=== PATIENT | male | born 2000 | race Caucasian/White ===

== ENCOUNTER 2019-02-23 13:55 | Inpatient (IN) | payer OTHER ==
[2019-02-23 14:10] VITALS: BMI 24.5
[2019-02-23] MEDS ORDERED: Sodium Chloride 0.9% 1,000 ML IV SCH (14:45)
[2019-02-23] MEDS ORDERED: Ondansetron ODT 4 MG TAB PO PRN (14:45)
[2019-02-23] MEDS ORDERED: Dextrose 5% in Water 1,000 ML IV PRN (14:45)
[2019-02-23] MEDS ORDERED: Dextrose 50% Abboject 50 ML SYRINGE SLOW IVP PRN (14:45)
[2019-02-23] MEDS ORDERED: Ondansetron PF 4 MG/2 ML Vial IVP PRN (14:45)
[2019-02-23] MEDS ORDERED: traMADol HCl 50 MG TAB PO PRN (14:50)
[2019-02-23] MEDS ORDERED: Acetaminophen 325 MG TAB PO SCH (15:00)
[2019-02-23] MEDS ORDERED: Ketorolac Tromethamine 30 MG/ML VIAL IVP SCH (15:00)
[2019-02-23] MEDS: traMADol HCl 50 MG TAB PO SCH ×2 (15:16→21:17)
[2019-02-23 15:26] LABS: Hemoglobin 12.6 g/dL (14.0-18.0)
[2019-02-23 15:50] LABS: ALT (SGPT) 260 U/L (8-55); AST (SGOT) 173 U/L (5-34); Albumin 4.5 g/dL (3.5-5.0); Alkaline Phosphatase 76 U/L (Less than 750); Anion Gap 12 mmol/L (10-20); BUN (Urea Nitrogen) 11 mg/dL (8.9-20.6); Bilirubin, Direct 0.6 mg/dL (0.1-0.3); Calc. Creatinine Clearance 166 mL/min (70-130); Calcium 8.7 mg/dL (7.8-10.44); Carbon Dioxide 24 mmol/L (22-29); Chloride 105 mmol/L (98-107); Estimated GFR-MDRD Greater than 90; Glucose 139 mg/dL (70-105); Potassium 3.6 mmol/L (3.5-5.1); Protein, Total 6.5 g/dL (6.0-8.3); Sodium 137 mmol/L (136-145)
--- NOTE | 2019-02-23 16:08 | HP ---
REQUESTING PHYSICIAN: Dr. Joseph [facility]. ATTENDING SURGEON: Dr. Benitez. CONSULTATIONS: None. HISTORY OF PRESENT ILLNESS: The patient is a 18-year-old man, who was playing football yesterday when he was tackled and landed between a player's helmet in the ground on his right flank. He was able to continue to play and overnight, he began having some soreness that this morning caused him to take himself to [facility], where he underwent evaluation and on examination was noted to have a contusion to his liver consistent with a hematoma and a questionable pulmonary contusion of his right lung, at which time they asked Dr. Benitez to evaluate the patient for admission and observation. The patient denied any loss of consciousness. Denies any nausea or vomiting or difficulty urinating. His chief complaint currently is right flank pain. ALLERGIES: NONE. CURRENT MEDICATIONS: None. PAST SURGICAL HISTORY: None. PAST MEDICAL HISTORY: None. SOCIAL HISTORY: The patient currently is a part-time student and also employed driving tractors, mowing torre. He has occasional alcohol. Denies drug or tobacco use. REVIEW OF SYSTEMS: A 10-point review of systems is negative as otherwise stated. PHYSICAL EXAMINATION: VITAL SIGNS: Temperature is 97.2, heart rate 59, blood pressure 120/62, respirations 17, and oxygen saturation 98% on room air. GENERAL: The patient is resting comfortably in bed. He is awake, alert, and oriented x3. [place] Coma Scale is 15. HEENT: Head is normocephalic and atraumatic. Eyes, extraocular motion intact. PERRLA bilaterally. Ears are atraumatic without discharge. Nose is atraumatic without discharge. Oropharynx is clear. NECK: Nontender. Trachea is midline. No JVD. CHEST: Clear to auscultation. The patient does have right upper quadrant pain with deep inspiration, but otherwise unremarkable. HEART: Regular rate and rhythm. ABDOMEN: Soft with tenderness to palpation to the right side of his abdomen. No gross peritoneal signs. Positive active bowel sounds. Pelvis is stable. EXTREMITIES: Neurovascularly intact x4. BACK: Shows contusion to the right flank and tender to that area. LABORATORY FINDINGS: White blood cell count 4.7, hemoglobin 13.6, hematocrit 42.4, and platelets 154. Sodium 136, potassium 3.6, CO2 of 29, chloride 120, BUN 12, and creatinine 1.0. ALT 108, AST 89, total bilirubin 1.8, and alkaline phosphatase 68. RADIOGRAPHIC FINDINGS: 1. CT of the chest with IV contrast shows ground-glass opacity in the right costophrenic sulcus, likely related to a small contusion. CT of the abdomen and pelvis with IV contrast shows a heterogeneous density collection within the posterior right lobe of the liver compatible with intraparenchymal hematoma. No appreciable active extravasation. No extracapsular fluid. 2. L5 spondylolysis without spondylolisthesis. ASSESSMENT/PLAN: 1. Status post sports injury with presentation greater than 12 hours afterwards. 2. Hepatic hematoma. 3. Small right pulmonary contusion. 4. Acute traumatic pain secondary to above. PLAN: Plan will be to admit the patient for observation. We will do serial exams, serial labs, oral pain medication, clear liquid diet and the patient will likely be able to be discharged home tomorrow. The evaluation, examination, laboratory, and radiographic findings were discussed with Dr. Benitez, who will be seeing the patient immediately after this dictation. Job ID: [id number]
[2019-02-23] MEDS: Cyclobenzaprine 10 MG TAB PO PRN (17:15)
[2019-02-23] MEDS ORDERED: HYDROcodone/Acetaminophen 5/325 mg Tablet PO PRN ×2 (17:46→18:36)
[2019-02-23] MEDS: HYDROcodone/Acetaminophen 5/325 mg Tablet PO PRN (18:46)
[2019-02-23 19:48] LABS: Bilirubin Negative (Negative); Blood, Urine Negative (Negative); Clarity Turbid (Clear); Glucose, Urine (Dipstick) Normal (Negative); Leukocyte Negative Leu/uL (Negative); Nitrite Negative (Negative); Protein, Urine (Dipstick) 30 mg/dL (Neg-Trace); Squamous Epithelial 0-3 HPF (0-3); Urobilinogen Normal mg/dL (Less than 2); WBC/HPF 0-3 HPF (0-3)
[2019-02-23 19:57] LABS: Bacteria/HPF None Seen HPF (None Seen); RBC/HPF 0-3 HPF (0-3)
[2019-02-23 20:59] LABS: Hemoglobin 11.5 g/dL (14.0-18.0)
[2019-02-23] MEDS: Gabapentin 300 MG CAP PO SCH (21:16)
[2019-02-23] MEDS: Senokot S 8.6-50 MG TAB PO SCH (21:17)
[2019-02-23] MEDS: Ibuprofen 600 MG TAB PO SCH (21:22)
[2019-02-24] MEDS: traMADol HCl 50 MG TAB PO SCH ×4 (02:40→20:50)
[2019-02-24 04:32] LABS: #Lymphocytes 0.5 thou/uL (1.20-3.40); #Monocytes 0.6 thou/uL (0.11-0.59); #Neutrophils 4.6 thou/uL (1.40-6.50); %Basophils 0.1 % (0.0-1.0); %Eosinophils 0.3 % (0.0-10.0); %Lymphocytes 9.1 % (28.0-48.0); %Neutrophils 80.6 % (31.0-61.0); Hemoglobin 10.8 g/dL (14.0-18.0); Mean Corpuscular Hemoglobin 31.7 pg (25.0-35.0); Mean Corpuscular Volume 93.2 fL (78.0-98.0); Mean Platelet Volume 9.4 fL (7.4-10.4); Platelet Count 160 thou/uL (130-400); RBC Distribution Width 11.3 % (11.5-14.5); Red Blood Cell (RBC) Count 3.39 mill/uL (4.00-5.20); White Blood Cell (WBC) Count 5.7 thou/uL (4.8-10.8)
[2019-02-24 04:52] LABS: ALT (SGPT) 2021 U/L (8-55); AST (SGOT) 1346 U/L (5-34); Albumin 4.1 g/dL (3.5-5.0); Alkaline Phosphatase 71 U/L (Less than 750); Anion Gap 13 mmol/L (10-20); BUN (Urea Nitrogen) 10 mg/dL (8.9-20.6); Bilirubin, Direct 0.4 mg/dL (0.1-0.3); Bilirubin, Total 2.4 mg/dL (0.2-1.2); Calc. Creatinine Clearance 157 mL/min (70-130); Calcium 8.7 mg/dL (7.8-10.44); Carbon Dioxide 26 mmol/L (22-29); Chloride 103 mmol/L (98-107); Estimated GFR-MDRD Greater than 90; Glucose 127 mg/dL (70-105); Potassium 3.7 mmol/L (3.5-5.1); Sodium 138 mmol/L (136-145)
[2019-02-24] MEDS: Ibuprofen 600 MG TAB PO SCH ×3 (06:39→21:33)
[2019-02-24] MEDS: Senokot S 8.6-50 MG TAB PO SCH ×2 (09:03→20:55)
[2019-02-24] MEDS: Gabapentin 300 MG CAP PO SCH ×2 (09:03→20:50)
[2019-02-24] MEDS: Polyethylene Glycol 3350 17 GM Packet PO SCH (09:04)
--- NOTE | 2019-02-24 09:25 | HP ---
ADDENDUM: This is an addendum to the H and P dictated by Bryan Montoya, trauma PA. For full details, please see his H and P. I have confirmed the details of this record and discussed the patient's treatment plan with Mr. Montoya in detail. 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 He did not have severe pain at that time and was able to finish the game and went to bed, but woke up this morning with severe pain in the right side and upper abdomen, so he went to a [facility] where he was found to have a pulmonary contusion and an intraparenchymal liver hematoma. He was admitted to [facility] for further care. He has no drug allergies, takes no medications, has no past medical or surgical history and family history is noncontributory. He does not drink, smoke, or use illicit drugs. The pain has been in the same spot since its onset and does not radiate. REVIEW OF SYSTEMS: Negative except for the pain. He denies any other injuries or loss of consciousness. PHYSICAL EXAMINATION: Complete physical examination was performed personally and he has some abrasions over his right back where the helmet struck and tenderness over the right lower ribs and right upper abdomen, but no crepitus or instability. His lungs are clear. There is no other evidence of traumatic injury. LABORATORY DATA: Hemoglobin declined slightly on recheck tonight, but he has been hemodynamically stable. ASSESSMENT: Liver laceration due to blunt trauma. Possible pulmonary contusion, but no respiratory symptoms. The patient has been admitted for observation and pain control. As his H and H continued to decline, reimaging may be considered, but currently he is stable. He has been informed that he cannot play football for the remainder of the season and needs to refrain from any contact sports or other activities that could put him at risk for re-injury and rebleeding. He understands and accepts the treatment plan. All of his questions were answered. Job ID: [id number]
--- NOTE | 2019-02-24 11:08 | PRG ---
DATE OF SERVICE: 02/23/2019 SUBJECTIVE: This is a 18-year-old gentleman, who came to evaluation of the right upper quadrant pain after being tackled and landed on a player's helmet on his right flank yesterday. The patient was found to have intraparenchymal hematoma of liver. The patient has been admitted to [facility] and follow up serial examination, vital signs, and H and H. The patient's vital signs has been stable. H and H from 12.8 probably at 3:00 p.m. today and at 8:00 a.m. today is 11.5, most likely due to dilution. The patient complained of pain from the right, pain scale of 7 /10. He denied headache, nausea, or vomiting. Urination is normal and he had no bowel movement. OBJECTIVE: GENERAL: The patient is lying down in bed on his left side. He preferred left side due to right flank pain, tender to touch, aggravated with movement. The patient is in mild acute distress due to pain. No acute respiratory distress. VITAL SIGNS: Heart rate is 64, blood pressure 135/69, respiratory rate 17, O2 saturation 98. LUNGS: Clear bilaterally. HEART: Regular rate and rhythm. ABDOMEN: Soft, nondistended, tender to touch from the right upper quadrant. Bowel sound is active. EXTREMITIES: Neurovascularly intact x4. NEUROLOGIC: No focal neurologic deficits. ASSESSMENT: 1. Status post injury, blunt trauma with late presentation. 2. Hepatic hematoma. 3. Small right pulmonary contusion. 4. Acute traumatic pain secondary to hepatic hematoma and right flank soft tissue contusion. PLAN: Continue observation, serial examination and vital signs. Serial H and H. Continue pain control. Job ID: [id number] [facility]
[2019-02-24] MEDS: HYDROcodone/Acetaminophen 5/325 mg Tablet PO PRN (12:21)
--- NOTE | 2019-02-24 15:59 | PRG ---
DATE OF SERVICE: 02/24/2019 SUBJECTIVE: The patient is hospital day #2, status post admission for sporting injury. The patient was reportedly playing football when he was tackled and struck in the right flank and then landed on the patient suffered what appears to be a grade 3 liver laceration and a small pulmonary contusion on the right side. Overnight, he had no issues. His pain was controlled. He tolerated his clear liquid diet and begin ambulating. PHYSICAL EXAMINATION: VITAL SIGNS: Temperature 98.2, heart rate 78, respirations 18, oxygen saturation is 96% on room air. GENERAL: The patient is resting comfortably in bed. He is awake, alert, and oriented x3. [place] Coma Scale is 15. HEENT: Unremarkable. LUNGS: Clear to auscultation with some right upper quadrant pain with deep inspiration. HEART: Regular rate and rhythm. ABDOMEN: Soft and flat with tenderness to palpation in the right upper quadrant. The patient has active bowel sounds. EXTREMITIES: Neurovascularly intact x4. LABORATORY FINDINGS: White blood cell count 5.7, hemoglobin 10.8, hematocrit 31.6, platelets 160. Sodium 138, potassium 3.7, chloride 103, CO2 of 26, BUN 10, creatinine 0.90, glucose 127. Total bilirubin 2.4, direct bilirubin 0.4, AST 1346, ALT 2021, and alkaline phosphatase 71. DIAGNOSTIC FINDINGS: There are no radiographs to review this morning. ASSESSMENT: 1. Status post sporting injury, tackled while playing football. 2. Grade 3 liver laceration. 3. Right pulmonary contusion. 4. Acute pain secondary to above. PLAN: Plan will be to advance the patient's diet to regular. Continue pain control, pulmonary toilet, gastritis, mechanical VTE prophylaxis, and encourage ambulation. We will also transfer the patient to the surgical floor. The evaluation, examination, laboratory, and radiographic findings were done with Dr. White this morning during rounds. Job ID: [id number]
--- NOTE | 2019-02-25 01:15 | PRG ---
DATE OF SERVICE: 02/25/2019 SUBJECTIVE: Mr. Doe is a 18-year-old gentleman, who comes to evaluation of abdominal pain after being tackled two days prior to admission. He sustained a liver laceration, grade 3. Conservative treatment. He reports pain is somewhat subsided. His vitals have been stable. Hemoglobin has been stable. Otherwise , he has raised no concern. OBJECTIVE: GENERAL: The patient lying down in bed, comfortable with no acute distress. VITAL SIGNS: Stable. LUNGS: Clear bilaterally. HEART: Regular rate and rhythm. ABDOMEN: Soft, nondistended, tender to touch at the right upper quadrant. Bowel sounds are active. ASSESSMENT: 1. Status post injury, blunt trauma with late presentation. 2. Hepatic hematoma. Liver laceration, grade 3. 3. Small right pulmonary contusion, stable. PLAN: Continue supportive care. Continue serial examination, vital signs. Continue pain control. Anticipated discharge tomorrow. Job ID: [id number] MTDD
[2019-02-25] MEDS: traMADol HCl 50 MG TAB PO SCH ×6 (02:05→19:50)
[2019-02-25 05:56] LABS: #Lymphocytes 0.6 thou/uL (1.20-3.40); #Neutrophils 9.4 thou/uL (1.40-6.50); %Basophils 0.2 % (0.0-1.0); %Eosinophils 0.1 % (0.0-10.0); %Lymphocytes 5.4 % (28.0-48.0); %Monocytes 9.3 % (0.0-4.0); Hemoglobin 9.3 g/dL (14.0-18.0); Mean Corpuscular HGB CONC 33.2 g/dL (32.0-36.0); Mean Corpuscular Hemoglobin 31.1 pg (25.0-35.0); Mean Corpuscular Volume 93.7 fL (78.0-98.0); Mean Platelet Volume 9.3 fL (7.4-10.4); Platelet Count 163 thou/uL (130-400); RBC Distribution Width 11.3 % (11.5-14.5); Red Blood Cell (RBC) Count 2.99 mill/uL (4.00-5.20); White Blood Cell (WBC) Count 11.1 thou/uL (4.8-10.8)
[2019-02-25] MEDS: Ibuprofen 600 MG TAB PO SCH (05:56)
[2019-02-25 06:22] LABS: ALT (SGPT) 3013 U/L (8-55); AST (SGOT) 1477 U/L (5-34); Albumin 3.9 g/dL (3.5-5.0); Alkaline Phosphatase 86 U/L (Less than 750); Anion Gap 10 mmol/L (10-20); BUN (Urea Nitrogen) 15 mg/dL (8.9-20.6); Bilirubin, Direct 0.6 mg/dL (0.1-0.3); Bilirubin, Total 2.1 mg/dL (0.2-1.2); Calc. Creatinine Clearance 146 mL/min (70-130); Calcium 8.4 mg/dL (7.8-10.44); Carbon Dioxide 25 mmol/L (22-29); Chloride 98 mmol/L (98-107); Estimated GFR-MDRD Greater than 90; Glucose 122 mg/dL (70-105); Phosphorus 3.3 mg/dL (2.3-4.7); Potassium 4.1 mmol/L (3.5-5.1); Protein, Total 5.7 g/dL (6.0-8.3); Sodium 129 mmol/L (136-145)
[2019-02-25] MEDS: Gabapentin 300 MG CAP PO SCH ×2 (08:03→19:50)
[2019-02-25] MEDS: Polyethylene Glycol 3350 17 GM Packet PO SCH (08:03)
[2019-02-25] MEDS: Senokot S 8.6-50 MG TAB PO SCH ×3 (08:03→19:50)
[2019-02-25] MEDS ORDERED: Ibuprofen 600 MG TAB PO PRN (08:45)
--- NOTE | 2019-02-25 17:49 | PRG ---
DATE OF SERVICE: 02/25/2019 SUBJECTIVE: The patient is hospital day #3 status post liver injury. The patient reports he was playing football when he was tackled and struck in the right flank. The patient suffered a grade 3 liver laceration and a small pulmonary contusion on the right side. The patient reports that his pain is improving. The patient had no overnight events. The patient is tolerating a regular diet at this time. The patient reports very minimal flatulence. The patient has not had a bowel movement since admission. OBJECTIVE: VITAL SIGNS: Blood pressure 103/55, temperature 98.3, pulse 91, respirations 20, SpO2 of 98% on room air. GENERAL: The patient is awake, alert, in no distress, lying in hospital bed comfortably. GCS is 15. HEENT: Unremarkable. LUNGS: Clear bilaterally. No respiratory distress. HEART: Regular rate and regular rhythm. ABDOMEN: Soft and flat, mild tenderness to palpation in the right upper quadrant. EXTREMITIES: Neurovascularly intact x4. LABORATORY DATA: WBC 11.1, RBC 2.99, hemoglobin 9.3, hematocrit 28.0. Sodium 129, potassium 4.1, chloride 98, BUN 15, creatinine 1.0, estimated GFR greater than 90, glucose 122, calcium 8.4, phosphorus 3.3, AST 1477, ALT 3013, alkaline phos 86. ASSESSMENT: 1. Status post sporting injury, tackled while playing football. 2. Grade 3 liver laceration. 3. Right pulmonary contusion. 4. Acute pain secondary to above. 5. Hyponatremia. PLAN: Continue regular diet. Continue pain control and pulmonary toilet. Continue mechanical DVT prophylaxis and encourage the patient to ambulate frequently. We will restrict free water to 1 L daily. The patient was examined with Dr. White during morning rounds. The plan was discussed with the patient and family who agree. Job ID: [id number]
--- NOTE | 2019-02-25 22:27 | PRG ---
DATE OF SERVICE: 02/25/2019 SUBJECTIVE: The patient was seen today during the evening rounds. He was resting comfortably in bed. Reported pain was well controlled. Tolerating a regular diet. OBJECTIVE: VITAL SIGNS: The patient is afebrile. Hemodynamically stable, breathing comfortably on 96% room air. GENERAL: Well-appearing young male, sitting in bed with no signs of acute distress. PULMONARY: Clear breath sounds bilaterally. Equal chest rise and fall. No signs of acute respiratory distress. CARDIAC: Regular rate and rhythm. ABDOMEN: Soft, mildly tender in the right upper quadrant and nondistended. NEUROLOGIC: GCS is 15. ASSESSMENT: 1. Status post football accident. 2. Grade 3 liver laceration. 3. Right pulmonary contusion. 4. Acute traumatic pain, improved. PLAN: Continue current diet and pain control. Pending additional labs tomorrow. Continue ambulation and working with the incentive spirometer. Job ID: [id number]
[2019-02-25] MEDS: Cyclobenzaprine 10 MG TAB PO PRN (23:15)
[2019-02-26] MEDS: traMADol HCl 50 MG TAB PO SCH ×4 (02:46→20:16)
[2019-02-26 06:12] LABS: #Lymphocytes 0.7 thou/uL (1.20-3.40); #Monocytes 0.8 thou/uL (0.11-0.59); %Basophils 0.1 % (0.0-1.0); %Eosinophils 0.2 % (0.0-10.0); %Monocytes 10.4 % (0.0-4.0); %Neutrophils 80.2 % (31.0-61.0); Hemoglobin 7.7 g/dL (14.0-18.0); Mean Corpuscular HGB CONC 33.8 g/dL (32.0-36.0); Mean Corpuscular Hemoglobin 31.4 pg (25.0-35.0); Mean Corpuscular Volume 92.9 fL (78.0-98.0); Mean Platelet Volume 8.7 fL (7.4-10.4); Platelet Count 129 thou/uL (130-400); RBC Distribution Width 11.1 % (11.5-14.5); Red Blood Cell (RBC) Count 2.46 mill/uL (4.00-5.20); White Blood Cell (WBC) Count 7.4 thou/uL (4.8-10.8)
[2019-02-26 06:35] LABS: ALT (SGPT) 2065 U/L (8-55); AST (SGOT) 629 U/L (5-34); Albumin 3.8 g/dL (3.5-5.0); Alkaline Phosphatase 100 U/L (Less than 750); Anion Gap 10 mmol/L (10-20); BUN (Urea Nitrogen) 11 mg/dL (8.9-20.6); Bilirubin, Total 1.7 mg/dL (0.2-1.2); Calc. Creatinine Clearance 190 mL/min (70-130); Calcium 8.4 mg/dL (7.8-10.44); Carbon Dioxide 28 mmol/L (22-29); Chloride 97 mmol/L (98-107); Estimated GFR-MDRD Greater than 90; Globulin 1.9 g/dL (2.4-3.5); Glucose 111 mg/dL (70-105); Magnesium 1.8 mg/dL (1.7-2.2); Phosphorus 1.8 mg/dL (2.3-4.7); Protein, Total 5.7 g/dL (6.0-8.3); Sodium 131 mmol/L (136-145)
[2019-02-26] MEDS ORDERED: Sodium Phosphate 30 MMOL in Sodium Chloride 0.9% 250 ML 250 ML IVPB SCH (06:45)
[2019-02-26] MEDS ORDERED: Magnesium 2 GM/50 ML 2 GM in Premix Bag 1 BAG IVPB SCH (07:00)
--- NOTE | 2019-02-26 08:16 | RAD ---
ONE VIEW CHEST: HISTORY: Respiratory decompensation. COMPARISON: None. FINDINGS: Normal cardiac silhouette. The pulmonary vessels and hilum are normal. Costophrenic angles are eli r. Elevation of the right hemidiaphragm. Right infrahilar opacity which may represent atelectasis. No pneumothorax or osseous abnormality. IMPRESSION: Elevation of the right hemidiaphragm with right infrahilar opacification. Right lower lobe atelectas is is suspected. Continued surveillance is recommended. POS: OFF
[2019-02-26] MEDS ORDERED: Sodium Chloride 0.9% (PF) 10 ML VIAL FS PRN (08:46)
[2019-02-26] MEDS: Senokot S 8.6-50 MG TAB PO SCH ×2 (08:49→20:17)
[2019-02-26] MEDS: Gabapentin 300 MG CAP PO SCH ×2 (08:49→20:17)
[2019-02-26] MEDS: Polyethylene Glycol 3350 17 GM Packet PO SCH (08:49)
[2019-02-26] MEDS: Pantoprazole 40 MG VIAL IVP SCH (08:52)
[2019-02-26] MEDS ORDERED: ISOVUE-370 76%-LOCM 1 ML ONE (09:36)
--- NOTE | 2019-02-26 11:42 | CT ---
Exam: Abdomen CT with and without contrast Pelvic CT with contrast HISTORY: Patient was hit in the back playing football on Sunday. Posttraumatic change in the right upper quadrant. Hepatic hemorrhage. FINDINGS: Abdomen CT: Complex right-sided and left-sided pleural effusion. Moderate right-sided pleural effusio n. Small left-sided pleural effusion. Adjacent consolidation likely due to atelectasis. Spleen is enlarged measuring 15.6 cm. There is a linear focus in the spleen which may represent a scott ft. However, the possibility of a splenic laceration cannot be excluded given complex perisplenic fluid. The pancreas and adrenal glands have appropriate attenuation and enhancement Symmetric enhancement of the kidneys. No obstructive uropathy There appears to be a large subcapsular hematoma causing mass effect upon the right hepatic lobe. Hem atoma measures 12.4 x 6.4 cm. There is heterogeneous enhancement of the posterior segment of the right hepatic lobe as well as the lateral aspect of left hepatic lobe suggesting hepatic laceration. Medial segment of the left hepatic lobe is unremarkable. There is complex fluid and hematoma in Morison's pouch. No gastrohepatic, retrocrural or periportal lymphadenopathy There appears to be a hematoma at the level of the caudate lobe, measuring 3.3 x 2.9 cm. There is complex fluid in the left and right paracolic gutters. Fluid tracks into the pelvis. No mesenteric mass, lymphadenopathy or free air Limited evaluation of the alimentary canal by the lack of oral contrast. No evidence of bowel obstruc tion. Ileocecal junction is unremarkable. Normal caliber air-filled appendix. Scattered fecal material in a nondistended, nondilated colon. CT PELVIS: Complex fluid in the pelvis, likely representing posttraumatic hemorrhage. Urine bladder i s unremarkable. No pelvic mass, lymphadenopathy or free air Osseous structures: Visualized bony thorax and bony pelvis are intact. No evidence of a fracture in t he visualized distal thoracic and lumbar spine. Bilateral pars defects at L5 are noted, likely chronic. No associated spondylolysis listhesis IMPRESSION: 1. Large perihepatic hematoma involving the right hepatic lobe as well as along Morison's pouch. Ther e is mass effect and deformity the right hepatic lobe. Multiple hepatic lacerations are identified. Findings are compatible with a grade 5 liver injury. 2. Questionable splenic laceration versus a cleft of the spleen. There is mild splenomegaly along wit h a small amount of complex perisplenic fluid 3. Complex fluid tracking along both paracolic gutters, presumed to be posttraumatic hemorrhage. Comp ananda fluid in the pelvis is also noted. There is evidence for hemoperitoneum. 4. Bilateral pleural effusions, complex. Transcribed Date/Time: 02/26/2019 1:41 PM
--- NOTE | 2019-02-26 12:10 | PRG ---
DATE OF SERVICE: 02/26/2019 18-year-old male, who sustained grade 3 liver hematoma playing football. SUBJECTIVE: Overnight, patient experienced decreased oxygen saturation and trouble breathing. Hemoglobin this AM was decreased at 7.7 so 1 unit PRBC was ordered. The patient reports his right-sided abdominal pain is improved from yesterday and controlled at 4/10 severity. He denies any trouble breathing currently. Tolerating PO. Denies bowel movement, but endorses passing gas. He is refusing his MiraLAX. He demonstrated using incentive spirometry for us at the bedside and was unable to reach 1500 mL. Per nursing, he has ambulated only in his room and not up and down the hallways. OBJECTIVE: VITAL SIGNS: Temperature 98.8; heart rate 106; respirations 18, 94% on room air , but is intermittently requiring 2 L of nasal cannula; and blood pressure 146/ 72. GENERAL: Well-appearing. CARDIAC: Regular rate and rhythm. No murmur. Appears well perfused. RESPIRATORY: Clear to auscultation. No respiratory distress. ABDOMEN: Nondistended. EXTREMITIES: Normal appearing. The patient is not wearing SCDs in bed. LABORATORY DATA: WBC 7.4; hemoglobin 7.7, it decreased from yesterday, which was 9.3; hematocrit 22.9; and platelets 129. Sodium 131, potassium 4.0, chloride 97, carbon dioxide 28, BUN 11, creatinine 0.79, glucose 111, calcium 8.4, phosphorus 1.8, magnesium 1.8. Total bilirubin 1.7, which is a decrease from 2.1 yesterday. AST 629, decreased from 1477; ALT 2065, decreased from 3013. IMAGING DATA: Chest x-ray obtained overnight revealed elevation of the right hemidiaphragm with right infrahilar opacification, suspected right lower lobe atelectasis. Abdomen/Pelvis CT with contrast obtained today showing an increase from a grade 3 to grade 4 liver hematoma along with a right-sided pleural effusion. ASSESSMENT: 18-year-old male with: 1. Grade 4 liver hematoma, representing an acute worsening of his liver injury. 2. Possible right pulmonary contusion. 3. Right pleural effusion PLAN: Continue pain control and regular diet for the patient. Continue encouraging incentive spirometry and ambulation. We will continue to monitor his pleural effusion. We will monitor with repeat labs tomorrow. He will remain in the hospital as an inpatient due to his acute worsening of the liver injury. This patient was seen, examined, and discussed with Dr. White, the attending physician, who agrees with the assessment and plan. Leti Duckworth MD PGY-1 Job ID: [id number] MTDD
[2019-02-26] MEDS ORDERED: Morphine 4 MG/ML VIAL SLOW IVP PRN (14:55)
[2019-02-26 15:40] LABS: #Lymphocytes 0.9 thou/uL (1.20-3.40); #Monocytes 0.7 thou/uL (0.11-0.59); #Neutrophils 4.3 thou/uL (1.40-6.50); %Basophils 0.4 % (0.0-1.0); %Eosinophils 0.3 % (0.0-10.0); %Lymphocytes 14.9 % (28.0-48.0); %Monocytes 11.1 % (0.0-4.0); %Neutrophils 73.3 % (31.0-61.0); Hemoglobin 8.3 g/dL (14.0-18.0); Mean Corpuscular HGB CONC 34.1 g/dL (32.0-36.0); Mean Corpuscular Hemoglobin 31.5 pg (25.0-35.0); Mean Corpuscular Volume 92.3 fL (78.0-98.0); Platelet Count 117 thou/uL (130-400); RBC Distribution Width 11.5 % (11.5-14.5); Red Blood Cell (RBC) Count 2.64 mill/uL (4.00-5.20); White Blood Cell (WBC) Count 5.8 thou/uL (4.8-10.8)
[2019-02-26] MEDS: Sodium Chloride 0.9% 1,000 ML IV SCH (15:46)
--- NOTE | 2019-02-26 15:56 | PRG ---
DATE OF SERVICE: 02/26/2019 SUBJECTIVE: Mr. Doe remains awake and alert. He reports 5/10 abdominal pain. He denies any dyspnea or syncope. He received a unit of packed red blood cells to treat the acute blood loss anemia today. CT scan of the abdomen and pelvis reveals a grade 4 to 5 liver laceration with no active contrast extravasation. The patient has remained hemodynamically stable otherwise. OBJECTIVE: CURRENT VITAL SIGNS: Include blood pressure is 123/73, pulse is 105, respiratory rate is 20, temperature is 98.7 degrees Fahrenheit, oxygen saturation is 96% on 2 L by nasal cannula oxygen. He uses incentive spirometer and achieves about 1500 mL. HEART: Reveals regular rate with sinus tachycardia. No murmurs or gallops auscultated. LUNGS: Clear to auscultation bilaterally. Breathing, regular and nonlabored. ABDOMEN: Soft and nondistended with moderate tenderness to palpation. No gross rebound or tenderness present. NEUROLOGIC: Reveals no focal deficits present. LABORATORY STUDIES: I did review the laboratory studies today including CBC notable for hemoglobin and hematocrit of 7.7 and 22.9 respectively. Platelet count is 129,000, down from a baseline of 160,000. Metabolic profile; sodium is 131, potassium is 4.0, chloride is 97, bicarb is 28, BUN is 11, creatinine is 0.79, total bilirubin is 1.7, down from 2.1 yesterday. AST and ALT improving at 629 and 2065 respectively compared to 1477 and 3013 respectively from yesterday. IMPRESSIONS: 1. Post injury day #3, status post blunt abdominal trauma. 2. Grade 4 to 5 liver laceration with no active contrast extravasation to suggest active hemorrhage. 3. Acute blood loss anemia secondary to the grade 4-5 liver injury. PLAN: 1. Continue with serial physical examination. 2. We will initiate serial hemoglobin to determine if active hemorrhage is suggested, which will warrant evaluation by Interventional Cardiothoracic Surgery for possible angioembolization. 3. There is no acute surgical indication for this patient at this time. Job ID: [id number]
[2019-02-26 21:04] LABS: Hemoglobin 8.2 g/dL (14.0-18.0)
[2019-02-26] MEDS ORDERED: Promethazine HCl 25 MG/ML VIAL IM PRN (21:26)
[2019-02-26] MEDS ORDERED: Promethazine HCl 25 MG/ML VIAL SLOW IVP PRN (21:26)
[2019-02-26] MEDS ORDERED: Ondansetron HCl/PF 4 MG/2 ML Vial IVP PRN (21:26)
--- NOTE | 2019-02-27 01:12 | PRG ---
DATE OF SERVICE: 02/26/2019 SUBJECTIVE: The patient was seen today during evening rounds. At the time of my evaluation, he had no complaints and reported pain was well controlled. He continues to use incentive spirometer. Denied nausea, vomiting, lightheadedness, dizziness, or shortness of breath. Denied chest pain. The patient had a drop in hemoglobin today with tachycardia this morning. He received 1 unit of packed red blood cells and his hemoglobin incremented to 8.3 from 7.7, tachycardia resolved. CT scan of the abdomen and pelvis demonstrated bilateral pleural effusions as well as significantly worsening liver laceration. Previously reported as a grade 3, is now designated as a grade 5 liver laceration with possible splenic injury. No active extravasation at that time. The patient received 1 unit of packed red blood cells today with q.8 hour hemoglobin checks. OBJECTIVE: VITAL SIGNS: The patient is hemodynamically stable. Blood pressure 116/71, pulse 90, respirations 18, oxygen saturation 96% on 2 L nasal cannula, and temperature 98.7. GENERAL: A well-appearing young male, lying in bed with no signs of acute distress. PULMONARY: Equal chest rise and fall. Clear breath sounds bilaterally. No signs of acute respiratory distress. CARDIAC: Regular rate and rhythm. No murmurs, gallops, or rubs. GI: Abdomen is soft, nontender, and nondistended. No signs of trauma. EXTREMITIES: 2+ pulses in all extremities. No significant swelling noted. NEUROLOGIC: GCS is 15. LABORATORY DATA: Hemoglobin completed at 20:54 on February 26 demonstrated hemoglobin of 8.2 from previously 8.3. ASSESSMENT: 1. Status post football injury. 2. Grade 5 liver laceration. 3. Right pulmonary contusion. 4. Bilateral pleural effusions. PLAN: Continue current pain regimen. The patient is n.p.o. with normal saline at 100 an hour. Continue q.8 hour hemoglobin checks as well as electrolytes in the morning. We will monitor closely for change in hemodynamics or drops in hemoglobin. The patient was discussed with Dr. White before this dictation. Job ID: [id number]
[2019-02-27] MEDS: traMADol HCl 50 MG TAB PO SCH ×4 (03:01→20:31)
[2019-02-27] MEDS: Sodium Chloride 0.9% 1,000 ML IV SCH ×3 (03:02→19:52)
[2019-02-27 05:49] LABS: Hemoglobin 8.1 g/dL (14.0-18.0)
[2019-02-27 06:11] LABS: Anion Gap 12 mmol/L (10-20); BUN (Urea Nitrogen) 10 mg/dL (8.9-20.6); Calc. Creatinine Clearance 211 mL/min (70-130); Calcium 8.5 mg/dL (7.8-10.44); Carbon Dioxide 25 mmol/L (22-29); Chloride 100 mmol/L (98-107); Estimated GFR-MDRD Greater than 90; Glucose 91 mg/dL (70-105); Magnesium 1.9 mg/dL (1.7-2.2); Potassium 3.9 mmol/L (3.5-5.1); Sodium 133 mmol/L (136-145)
[2019-02-27] MEDS ORDERED: Magnesium 2 GM/50 ML 2 GM in Premix Bag 1 BAG IVPB SCH (07:45)
[2019-02-27] MEDS: Polyethylene Glycol 3350 17 GM Packet PO SCH (08:18)
[2019-02-27] MEDS: Gabapentin 300 MG CAP PO SCH ×2 (08:19→20:30)
[2019-02-27] MEDS: Senokot S 8.6-50 MG TAB PO SCH ×2 (08:20→20:30)
[2019-02-27] MEDS: Pantoprazole 40 MG VIAL IVP SCH (08:21)
[2019-02-27 08:25] LABS: #Lymphocytes 0.7 thou/uL (1.20-3.40); #Monocytes 0.7 thou/uL (0.11-0.59); #Neutrophils 4.2 thou/uL (1.40-6.50); %Basophils 0.1 % (0.0-1.0); %Eosinophils 0.3 % (0.0-10.0); %Lymphocytes 12.8 % (28.0-48.0); %Monocytes 12.4 % (0.0-4.0); %Neutrophils 74.4 % (31.0-61.0); Hemoglobin 8.6 g/dL (14.0-18.0); Mean Corpuscular HGB CONC 35.2 g/dL (32.0-36.0); Mean Corpuscular Hemoglobin 32.2 pg (25.0-35.0); Mean Corpuscular Volume 91.6 fL (78.0-98.0); Mean Platelet Volume 7.9 fL (7.4-10.4); Platelet Count 145 thou/uL (130-400); RBC Distribution Width 11.7 % (11.5-14.5); Red Blood Cell (RBC) Count 2.66 mill/uL (4.00-5.20); White Blood Cell (WBC) Count 5.6 thou/uL (4.8-10.8)
[2019-02-27 13:13] LABS: Hemoglobin 8.6 g/dL (14.0-18.0)
--- NOTE | 2019-02-27 15:20 | PRG ---
DATE OF SERVICE: 02/27/2019 SUBJECTIVE: Mr. Doe is a 18-year-old man, status post blunt trauma to the chest and abdomen following football. The patient sustained what was initially a grade 3 liver hematoma. He was found yesterday with acute anemia. Repeat CT scan of the abdomen and pelvis was remarkable for what is now progressed to a grade 4 to 5 liver laceration with hemoperitoneum. The patient received a unit of packed red blood cells yesterday. He has remained hemodynamically stable since. This morning, he is awake and alert. He reports 4/5 abdominal pain. Passes flatus. He has not had any bowel movement. He denies any nausea or vomiting. OBJECTIVE: VITAL SIGNS: Include blood pressure, which is 127/74, pulse 100, respiratory rate is 18, temperature is 98.7 degrees Fahrenheit, oxygen saturation 92% on room air. HEENT: Pupils are equal, round, reactive to light and accommodation. HEART: Reveals regular rate and rhythm. No murmurs or gallops auscultated. LUNGS: Clear to auscultation bilaterally. Breathing, regular and nonlabored. ABDOMEN: Soft and nondistended. He has moderate tenderness to palpation with no rebound tenderness present. Bowel sounds in all 4 quadrants appear normoactive. NEUROLOGIC: Reveals no focal deficits present. LABORATORY FINDINGS: Include a CBC with 5600 white blood cells; hemoglobin and hematocrit of 8.6 and 24.4 respectively and stable; platelet count is 145,000, improved from 117,000 yesterday. Metabolic profile; sodium 133, potassium 3.9, chloride is 100, bicarb is 25, BUN 10, creatinine 0.71, glucose is 91, magnesium 1.9, phosphorus is 2.0. IMPRESSION: 1. Post injury day #4, status post blunt chest and abdominal trauma. 2. Grade 4 to 5 liver laceration. 3. Acute blood loss anemia. 4. Acute hypomagnesemia. 5. Acute hypophosphatemia. 6. Acute hypokalemia. PLAN: 1. Correct abnormal electrolytes. 2. We will initiate clear liquid diet. 3. We will continue with nonpharmacological VTE prophylaxis and encourage the patient to ambulate flat surfaces. 4. The above findings and plan have been discussed with the patient. I reviewed the patient's clinical presentation as well as the CT scan of the abdomen and pelvis with the patient, his parents, and stepfather at bedside. The patient has been made aware that he is at risk for further bleed, which may necessitate procedural interventions to include angio embolization. 5. His discharge will follow in the next few days if he remains stable with return of bowel function, no evidence of active hemorrhage or fever. 6. The patient indicates understanding of information given. I have answered his questions. Job ID: [id number]
--- NOTE | 2019-02-28 00:56 | PRG ---
DATE OF SERVICE: 02/27/2019 The patient was seen today during evening rounds. He was resting in bed comfortably and asleep. Earlier in the day, I have also seen the patient ambulating with his family members on the nursing floor with no signs of acute distress. The patient is now hospital day 5 status post football injury with a grade 5 liver laceration, right pulmonary contusion and bilateral pleural effusions. He received 1 unit of packed red blood cells the day before yesterday for symptomatic anemia. He has not needed additional blood transfusions since that time. He has also remained hemodynamically stable. We will continue his current pain regimen. He was advanced to a clear liquid diet today. We will also continue normal saline at 100 an hour. Continue to watch his hemodynamics closely. He is afebrile and hemodynamically stable. At the time of my evaluation, he is intermittently mildly tachycardic with a max pulse of 109, saturating 92% on room air. The patient is also to receive DVT ultrasounds of his lower extremities to rule out possible DVTs at hospital day 7. The patient will likely eventually be able to be discharged home once he is stable from his severe liver injury. Job ID: [id number]
[2019-02-28] MEDS: traMADol HCl 50 MG TAB PO SCH ×4 (03:35→20:23)
[2019-02-28] MEDS: Sodium Chloride 0.9% 1,000 ML IV SCH (05:47)
[2019-02-28] MEDS: Cyclobenzaprine 10 MG TAB PO PRN ×2 (05:49→22:54)
[2019-02-28 05:59] LABS: #Eosinphils 0.1 thou/uL (0.0-0.7); #Lymphocytes 0.6 thou/uL (1.20-3.40); #Monocytes 0.6 thou/uL (0.11-0.59); #Neutrophils 3.3 thou/uL (1.40-6.50); %Basophils 0.4 % (0.0-1.0); %Eosinophils 1.2 % (0.0-10.0); %Lymphocytes 12.1 % (28.0-48.0); %Monocytes 13.9 % (0.0-4.0); %Neutrophils 72.4 % (31.0-61.0); Hemoglobin 8.6 g/dL (14.0-18.0); Mean Corpuscular HGB CONC 34.3 g/dL (32.0-36.0); Mean Corpuscular Hemoglobin 31.5 pg (25.0-35.0); Mean Corpuscular Volume 91.9 fL (78.0-98.0); Mean Platelet Volume 7.3 fL (7.4-10.4); Platelet Count 173 thou/uL (130-400); RBC Distribution Width 11.9 % (11.5-14.5); Red Blood Cell (RBC) Count 2.73 mill/uL (4.00-5.20); White Blood Cell (WBC) Count 4.6 thou/uL (4.8-10.8)
[2019-02-28 06:20] LABS: Anion Gap 13 mmol/L (10-20); BUN (Urea Nitrogen) 6 mg/dL (8.9-20.6); Calc. Creatinine Clearance 210 mL/min (70-130); Calcium 8.5 mg/dL (7.8-10.44); Carbon Dioxide 25 mmol/L (22-29); Chloride 102 mmol/L (98-107); Estimated GFR-MDRD Greater than 90; Glucose 108 mg/dL (70-105); Magnesium 2.1 mg/dL (1.7-2.2); Phosphorus 2.4 mg/dL (2.3-4.7); Potassium 3.8 mmol/L (3.5-5.1); Sodium 136 mmol/L (136-145)
[2019-02-28] MEDS: Polyethylene Glycol 3350 17 GM Packet PO SCH (08:22)
[2019-02-28] MEDS: Senokot S 8.6-50 MG TAB PO SCH ×3 (08:23→22:54)
[2019-02-28] MEDS: Pantoprazole 40 MG VIAL IVP SCH (08:23)
[2019-02-28] MEDS: Gabapentin 300 MG CAP PO SCH ×2 (08:23→20:24)
[2019-02-28] MEDS: Ferrous Sulfate 325 MG TAB PO SCH ×2 (08:39→16:52)
[2019-02-28] MEDS: Ascorbic Acid 500 mg Chewable Tablet PO SCH ×2 (08:39→16:52)
--- NOTE | 2019-02-28 11:51 | PRG ---
DATE OF SERVICE: 02/28/2019 SUBJECTIVE: Mr. Doe is a 18-year-old man who suffered blunt trauma to the chest and abdomen resulting in a grade 4 to 5 liver laceration. He is now hemodynamically stable over the last 24 hours. He tolerates clear liquid diet. He is now passing flatus, but has not had any bowel movement. He denies any nausea or vomiting. He denies any dyspnea or syncope. OBJECTIVE: VITAL SIGNS: His vital signs today include blood pressure 132/72, pulse is 101, respiratory rate is 18, temperature is 98.4 degrees Fahrenheit, and oxygen saturation is 91% on room air. HEENT: Pupils are equal, round, and reactive to light and accommodation. HEART: Reveals regular rate with mild sinus tachycardia. No murmurs or gallops auscultated. LUNGS: Clear to auscultation bilaterally. His breathing is regular and nonlabored. ABDOMEN: Soft and nondistended. He has mild tenderness to palpation with no peritoneal signs on examination. LABORATORY FINDINGS: Include a CBC with 4600 white blood cells, hemoglobin and hematocrit are stable at 8.6 and 25.1 respectively. Platelet count is 173,000. Metabolic profile; sodium 136, potassium 3.8, chloride is 102, bicarb is 25, BUN is 6, creatinine is 0.71, glucose is 108, magnesium 2.1, and phosphorus is 2.4. IMPRESSIONS: 1. Postinjury day #5, status post blunt chest and abdominal trauma. 2. Grade 4 to 5 liver laceration. 3. Acute blood loss anemia. 4. Acute compressive atelectasis as noted on CT scan of the abdomen and pelvis from 02/26/2019. PLAN: 1. Advance diet to regular. 2. We will start the patient on iron replacement therapy with vitamin C. 3. The patient was encouraged to ambulate on flat surfaces, increasing his activity. 4. There is no acute surgical indication for this patient at this time nor is there any indication for blood transfusion. 5. Anticipate discharge within the next 24 to 48 hours after the first bowel movement as long as hemoglobin and hematocrit remain stable. Above findings and plan discussed with the patient, his mother, and his stepfather at bedside. They indicated understanding of the information given. Job ID: [id number]
--- NOTE | 2019-03-01 00:08 | PRG ---
DATE OF SERVICE: 02/28/2019 The patient was seen today during evening rounds. He was resting comfortably and asleep in bed with no signs of acute distress. Upon evaluation of his vitals, he is afebrile and hemodynamically stable. He is no longer tachycardic, and he is saturating between 92% and 95% on room air. The patient was advanced to a regular diet today and started on lactulose. He is pending a bowel movement. There are no signs of increased or continued bleeding. Respiratory effort has also improved. We will continue to encourage walking and using incentive spirometer. Once he has a bowel movement, if he remains stable, it is likely he will be discharged at that time. Job ID: [id number]
[2019-03-01] MEDS: traMADol HCl 50 MG TAB PO SCH ×2 (03:18→08:34)
[2019-03-01] MEDS ORDERED: Morphine 4 MG/ML VIAL SLOW IVP SCH (03:45)
[2019-03-01 05:54] LABS: Hemoglobin 9.1 g/dL (14.0-18.0); Mean Corpuscular HGB CONC 34.4 g/dL (32.0-36.0); Mean Corpuscular Hemoglobin 32.3 pg (25.0-35.0); Mean Platelet Volume 7.7 fL (7.4-10.4); Platelet Count 203 thou/uL (130-400); RBC Distribution Width 12.4 % (11.5-14.5); Red Blood Cell (RBC) Count 2.81 mill/uL (4.00-5.20); White Blood Cell (WBC) Count 4.8 thou/uL (4.8-10.8)
[2019-03-01 06:47] LABS: Band 5 % (5-11); Eosinophils 1 % (0-10); Lymphocytes 18 % (28-48); MDiff Complete? YES; Monocytes 12 % (0-4); Neutrophil 63 % (31-61); Reactive Lymphocytes 1 % (0-10)
[2019-03-01] MEDS: Polyethylene Glycol 3350 17 GM Packet PO SCH (08:33)
[2019-03-01] MEDS: Ferrous Sulfate 325 MG TAB PO SCH (08:34)
[2019-03-01] MEDS: Senokot S 8.6-50 MG TAB PO SCH (08:35)
[2019-03-01] MEDS: Ascorbic Acid 500 mg Chewable Tablet PO SCH (08:35)
[2019-03-01] MEDS: Gabapentin 300 MG CAP PO SCH (08:35)
[2019-03-01 09:05] VITALS: BP 127/75; TEMP 98.7
[2019-03-01] MEDS: Cyclobenzaprine 10 MG TAB PO PRN (12:52)
--- NOTE | 2019-03-03 05:31 | DIS ---
DATE OF ADMISSION: 02/23/2019 DATE OF DISCHARGE: 03/01/2019 This is Lorna Wray NP dictating a report for Jj White DO. ATTENDING SURGEON: Man Benitez MD. DISCHARGE ATTENDING: Jj White DO PROCEDURES: 1. Chest x-ray on 02/26/2019, elevation of the right hemidiaphragm with right infrahilar opacification. Right lower lobe atelectasis is suspected. 2. On 02/26/2019, abdomen and pelvis CT with and without contrast; impression, large perihepatic hematoma involving the right hepatic lobe as well as along Morison's pouch. There is a mass effect and deformity to the right hepatic lobe. Multiple hepatic lacerations are identified. Findings are comparable with a grade 5 liver injury. Questionable splenic laceration versus cleft of the spleen. There is mild splenomegaly along with a small amount of complex perisplenic fluid. Bilateral pleural effusions, complex. PRIMARY DIAGNOSES: Status post sports injury with presentation greater than 12 hours afterwards, hepatic hematoma, small bowel, pulmonary contusion, grade 4 liver injury progressing to grade 5 liver injury. DISCHARGE MEDICATIONS: 1. Flexeril 10 mg p.o. 3 times a day as needed, #30. 2. Gabapentin 300 mg p.o. b.i.d. 3. Tramadol 50 mg p.o. q.6 hours as needed for pain, #30. 4. Vitamin C 500 mg p.o. b.i.d. 5. Ferrous sulfate 325 mg p.o. b.i.d. 6. MiraLAX. 7. Senna-S 1 tab p.o. b.i.d. HISTORY OF PRESENT ILLNESS AND HOSPITAL COURSE: This is a 18-year-old man, who was playing football when he was tackled and landed between a player's helmet and the ground onto his right flank. The patient was able to continue to play, but overnight he began having some soreness, which increased in severity causing him to get evaluated at a freestanding emergency room. The patient underwent evaluation and examination and was noted to have a contusion to his liver consistent with a hematoma and questionable pulmonary contusion of his right lung. The patient was transferred to [facility], where Dr. Benitez evaluated the patient for admission and observation. There was no loss of consciousness. The patient denied any nausea or vomiting or difficulty urinating. The patient only complained of right flank pain. The patient was placed on bedrest and serial hemoglobin and hematocrit were drawn. The patient remained hemodynamically stable during his hospital course and had good urinary output. The patient was eventually advanced to a clear liquid diet and finally started passing gas and had a bowel movement. The patient never had any nausea or vomiting or any shortness of breath or syncope. On 02/27/2019, the patient had some increased pain, but remained hemodynamically stable and a repeat CT was obtained. The patient did have a drop in his hemoglobin to 7.7 and was transfused 1 unit of packed red blood cells and responded appropriately. No other blood products or surgical intervention was required. The patient was followed by Dr. White during his hospital stay. The patient's hemoglobin remained stable and his vital signs remained stable. On the day of discharge, the patient's vital signs were stable and the patient's exam was unremarkable including cardiopulmonary and GI exam. The patient was deemed stable for discharge home. DISPOSITION: Stable. DISCHARGE INSTRUCTIONS: 1. Location: Home. 2. Diet: Regular diet as tolerated. 3. Activity: No strenuous activity. No heavy lifting. No exercise. No walking stairs until followup appointment is obtained. 4. Follow up with Dr. White on March 11 at 2:30 p.m. The patient will need an abdominal and pelvis CT scan before this appointment. Please obtain the Sunday before or the morning of the appointment. Job ID: [id number]
== END 2019-03-01 13:09 | disposition home or self-care (01) | DRG 964 ==
LOC: IMCU/EMU 13:55 → OBSVTOIN 13:55 → INTOOBSV 13:55 → SURG B 02-24 13:23
PROVIDERS: ADMIT Surgery; ATTEND Surgery
DX: S36.116A Major laceration of liver, initial encounter (principal); S27.321A Contusion of lung, unilateral, initial encounter; E87.1 Hypo-osmolality and hyponatremia; D62 Acute posthemorrhagic anemia; J98.11 Atelectasis; R40.2412 Glasgow coma scale score 13-15, at arrival to emergency department; W21.81XA Striking against or struck by football helmet, initial encounter; Y93.61 Activity, american tackle football; Y92.89 Other specified places as the place of occurrence of the external cause; E83.42 Hypomagnesemia; E83.39 Other disorders of phosphorus metabolism; E87.6 Hypokalemia
CPT/HCPCS: 36415; 36416; 36430; 71045; 74178; 80048; 80053; 80076; 81001; 83735; 84100; 85014; 85018; 85025; 86850; 86900; 86901; 94640; C9113; J1885; J2270; J3475; J7050; J7620; P9016; Q9966